=== PATIENT | female | born 1955 | race Caucasian/White ===

== ENCOUNTER 2022-04-07 07:07 | Day surgery (SDC) | payer OTHER, MEDICARE ==
[2022-03-30 15:31] LABS: BASOPHILS % (AUTO) 0.6 % (0-1); EOSINOPHILS # (AUTO) 0.1 X10'3 (0-0.9); EOSINOPHILS % (AUTO) 1.5 % (0-6); LYMPHOCYTES % (AUTO) 51.8 % (21-51); MEAN CORPUSCULAR HEMOGLOBIN 31.1 PG (27.0-31.0); MEAN CORPUSCULAR HGB CONC 32.8 g/dL (33.0-36.5); MEAN CORPUSCULAR VOLUME 94.7 FL (78-98); MEAN PLATELET VOLUME 9.2 FL (7.4-10.4); MONOCYTES # (AUTO) 0.4 X10'3 (0-0.9); MONOCYTES % (AUTO) 10.6 % (2-12); NEUTROPHILS # (AUTO) 1.4 X10'3 (1.8-7.7); NEUTROPHILS % (AUTO) 35.5 % (42-75); PRE OP HEMATOCRIT 42.2 % (35.0-45.0); PRE OP HEMOGLOBIN 13.8 g/dL (12.0-16.0); PRE OP PLATELET COUNT 172 X10'3 (140-440); RED BLOOD COUNT 4.46 X10'6 (4.20-5.60); RED CELL DISTRIBUTION WIDTH 13.3 % (11.5-14.5)
[2022-03-30 15:46] LABS: ALBUMIN/GLOBULIN RATIO 1.2 (1.1-1.5); ALKALINE PHOSPHATASE 68 IU/L (46-116); BLOOD UREA NITROGEN 10 MG/DL (7-18); BUN/CREATININE RATIO 14.1 (6.6-38.0); CALCIUM 9.2 MG/DL (8.5-10.1); CHLORIDE 105 MMOL/L (99-107); CREATININE 0.71 MG/DL (0.40-0.90); PRE OP ALT 19 U/L (30-65); PRE OP ANION GAP 7 (8-16); PRE OP AST 14 U/L (10-37); PRE OP BILIRUB, TOTAL 0.5 MG/DL (0.0-1.0); PRE OP GLUCOSE 97 MG/DL (70-104); PRE OP SODIUM 141 MMOL/L (135-145); TOTAL CARBON DIOXIDE 29.5 MMOL/L (24-32); TOTAL PROTEIN 7.4 G/DL (6.4-8.2); eGFR 82 ML/MIN
[2022-03-30 16:10] LABS: PLATELET ESTIMATE NORMAL; TOTAL CELLS COUNTED 100
[~2022-04-07] VITALS: Ht 175.3 cm; Wt 68.0 kg
[2022-04-07] VITALS (9 sets, daily range): BP systolic 112–137; BP diastolic 62–94
[~2022-04-07 07:07] MED LIST: CHOL20002 PO; CLON0.5T4 PO; CYCL5TAB PO; DULO60CA65 PO; IXEK80AU2 SQ; LIPA1CAP18; ONDA-103 PO; PANT40TA54 PO; TRAZ-251 PO; VARE1TAB24 PO; famotidine 20mg tablet PO ONE; ringers solution, lacted 1,000 ML IV SCH
[2022-04-07] MEDS ORDERED: FLUC150T54 (08:22)
[2022-04-07] MEDS ORDERED: midazolam 1 mg/ML 2ml injection ONE (09:19)
[2022-04-07] MEDS ORDERED: BUPIVAcaine/PF 2.5 mg/ml (0.25%) 30ml vial ONE (09:38)
[2022-04-07] MEDS ORDERED: morphine 4 MG/ML inj SYRINge IV PRN (09:45)
[2022-04-07] MEDS ORDERED: morphine 2 MG/ML inj. syringe IV PRN (09:45)
[2022-04-07] MEDS ORDERED: ketorolac tromethamine 15mg/ml inj. IV ONE (09:45)
[2022-04-07] MEDS ORDERED: meperidine/PF 25mg/ml syringe IV PRN (09:45)
[2022-04-07] MEDS ORDERED: hydrALAZINE 20mg/ml inj. IV PRN (09:45)
[2022-04-07] MEDS ORDERED: HYDROmorphone/PF 0.2 MG/ML SYRINGE IV PRN ×2 (09:45)
[2022-04-07] MEDS ORDERED: proCHLORperazine 10 MG/2 ml inj IV PRN (09:45)
[2022-04-07] MEDS ORDERED: labetalol 20mg/4ml (5mg/ml) syringe IV PRN (09:45)
[2022-04-07] MEDS ORDERED: acetaminophen 1,000mg/100ml IV 100 ML IV PRN (09:45)
[2022-04-07] MEDS ORDERED: ondansetron/PF 4mg/2ml inj IV PRN (09:45)
[2022-04-07] MEDS ORDERED: ringers solution, lacted 1,000 ML IV SCH (09:45)
[2022-04-07] MEDS ORDERED: fentaNYL /PF 50mcg/ml 5ml ampule ONE (09:54)
[2022-04-07] MEDS ORDERED: LIDOcaine 2% (20mg/ml) 5ml vial ONE (10:52)
[2022-04-07] MEDS ORDERED: ondansetron/PF 4mg/2ml inj ONE (10:52)
[2022-04-07] MEDS ORDERED: propofol inj 20 ML IV ONE (10:52)
[2022-04-07] MEDS ORDERED: rocuronium 10mg/ml inj IV ONE (10:52)
[2022-04-07] MEDS ORDERED: dexamethasone sod phosphate 4mg/ml inj. ONE (10:52)
[2022-04-07] MEDS ORDERED: neostigmine methylsulfate 1 MG/ML 10ml vial ONE (11:12)
[2022-04-07] MEDS ORDERED: glycopyrrolate 0.2mg/ml inj ONE (11:12)
--- NOTE | 2022-04-07 11:17 | NUR ---
Received from OR via [facility] , accompanied by Anesthesiologist DAVE and report given by Anesthesiolgist. PATIENT WITH 3 LAP SITES TO ABDOMEN THAT ARE CDI. YONI PAD IN PLACE. 10L MASK ON WITH 100% SATURATIONS. DENIES PAIN AT THIS TIME. Addendum: 04/07/22 at 1132 by Adam Gomez RN, RN Amended: Links added.
--- NOTE | 2022-04-07 12:27 | NUR ---
ALL DISCHARGE CRITERIA HAS BEEN MET. VSS, PAIN AT A TOLERABLE LEVEL, ABLE TO SAFELY AMBULATE AND TRANSFER SELF. IV TAKEN OUT WITHOUT ANY COMPLICATIONS. ALL DISCHARGE INSTRUCTIONS COVERED WITH PATIENT AND ALL QUESTIONS ANSWERED. PATIENT TAKEN OUT VIA WHEELCHAIR TO PERSONAL VEHICLE WHERE FAMILY/FRIEND DROVE PATIENT HOME. Addendum: 04/07/22 at 1235 by Adam Gomez RN, RN Amended: Links added.
== END 2022-04-07 12:27 | disposition home or self-care (01) ==
LOC: PAS 07:07
PROVIDERS: ATTEND Obstetrics & Gynecology
DX: N83.292 Other ovarian cyst, left side (principal); N83.291 Other ovarian cyst, right side; L40.9 Psoriasis, unspecified; F32.9 Major depressive disorder, single episode, unspecified; Z79.01 Long term (current) use of anticoagulants; Z79.899 Other long term (current) drug therapy; Z98.890 Other specified postprocedural states
CPT/HCPCS: 36415; 58661; 80053; 82948; 85025; 86885; 86900; 86901; J1100; J1170; J1885; J2250; J2405; J2704; J2710; J3010; J3490; J7030; J7120; Z7506; Z7508; Z7512; 85007; A4618; A7000

== ENCOUNTER 2024-05-01 17:21 | Emergency (ER) | payer OTHER, MEDICARE ==
[~2024-05-01] VITALS: Ht 172.7 cm; Wt 75.9 kg
[~2024-05-01 17:21] MED LIST changes: +CYCL-920 PO; -CYCL5TAB PO; +FLUC150T54; -LIPA1CAP18; -famotidine 20mg tablet PO ONE; -ringers solution, lacted 1,000 ML IV SCH
[2024-05-01 17:26] VITALS: BP 126/66; PULSE 61; RESP 18; TEMP 97.5; O2SAT 94
[2024-05-01] MEDS ORDERED: ALBU8HFA INH (19:19)
[2024-05-01] MEDS ORDERED: PROM118S5 PO (19:19)
== END 2024-05-01 19:29 | disposition home or self-care (01) ==
LOC: ER 17:21
DX: J06.9 Acute upper respiratory infection, unspecified (principal); I10 Essential (primary) hypertension; F32.A Depression, unspecified; Z79.899 Other long term (current) drug therapy; Z20.822 Contact with and (suspected) exposure to COVID-19
CPT/HCPCS: 36415; 71045; 87502; 87503; 87811; 99284